=== PATIENT | male | born 1980 | race Caucasian/White ===

== ENCOUNTER → 2018-07-26 06:53 | Outpatient (CLI) | payer MEDICAID, SELFPAY ==
--- NOTE | 2018-07-26 06:58 | CT_ITS ---
STUDY: CT SOFT TISSUE NECK WITH CONTRAST REASON FOR EXAM: Male, 38 years old. Right neck mass 2 weeks. History of right bronchial mass removed 3 years ago. RADIATION DOSAGE (If Supplied By Facility): CTDIvol = ( 25.94 ) mGy, DLP = ( 712.53 ) mGycm TECHNIQUE: The patient was scanned in a multi-detector CT scanner. High resolution transaxial imaging was performed following intravenous administration of 75CC ml of Isovue 300 contrast material. Sagittal and coronal images were reconstructed. Individualized dose optimization techniques were used for this CT. COMPARISON: None. FINDINGS: There is a loculated cystic and solid mass posterior to the angle the mandible on the right. The mass measures up to 4.1 cm craniocaudal, 3.1 cm transverse, 3.7 cm anterior-posterior. Along its medial margin, the mass is bounded by the digastric muscle, jugular vein, internal and external carotid arteries. Lungs lateral superficial margin the mass is bounded by the sternocleidomastoid muscle and the base of the parotid gland. Mildly enlarged lymph nodes of the right jugulodigastric chain, several, the largest measuring approximately 13 x 9 mm. Nonenlarged lymph nodes are present adjacent to the normal submandibular gland. On the left, enlarged lymph node immediately posterior to the angle the mandible measures 2.2 x 1.4 cm. A few additional small lymph nodes are present in the left cervical chains. The left subendometrial gland is normal. Bilaterally, the parotid glands are normal. Parapharyngeal and retropharyngeal fat planes are preserved. Pharyngeal and laryngeal soft tissues normal. Normal thyroid. No supraclavicular mass or lymphadenopathy. Apical lungs clear with features of underlying centrilobular emphysema. Correlate smoking history. A few small lymph nodes are present in the mid to superior mediastinum, the largest in the prevascular chain measuring about 14 x 9.5 mm. Largest pretracheal measures approximately 12 x 9 mm, just above the ritesh. No adam mediastinal lymphadenopathy is visible. No acute osseous process. No significant cervical spondylosis. Paranasal sinuses, mastoid air cells within the field of view are clear. Middle ear cavities clear. CT/Soft Tissue Neck WITH Contrast IMPRESSION: Loculated cystic and solid mass of the right neck lying immediately posterior to the angle the mandible. 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 Centrally necrotic lymphadenopathy might present similarly. ENT consultation is recommended. Electronically Signed: Jorge Calix, at 10:50 EDT Tel , Service support ,
== END ==
PROVIDERS: Referring Provider Otolaryngology; Visit Provider Otolaryngology
DX: R22.1 Localized swelling, mass and lump, neck (principal)
CPT/HCPCS: 70491; Q9967

== ENCOUNTER → 2018-07-28 09:22 | Outpatient (CLI) | payer MEDICAID, SELFPAY ==
--- NOTE | 2018-07-28 | ASPOS_PTH ---
PATIENT: JOSEPHINE CRUZ LOC: [facility] U#:[id number] AGE/SX: 45/M ROOM: RE07/28/[address]: Dr. Easton Licea MD : 1980 BED: DIS: SPEC #: [id number] RECD: 07/28/18 12:59 STATUS: KYLEE NEREYDA #: [id number] SARAH: 07/28/18 00:[address]: Easton Licea DEPT: CYTOLOGY RECD BY: Mauri Bolton ENTERED: 07/28/18 13:00 SP TYPE: ASP HERE OTHR DR: No Primary Care Phys Tissues: Neck, NOS Procedures: Pap Stain (control) Special Stain Group II Surgery Specimen Level IV Diff Quik Stain (control) Cell Block Cytology Other Fine Needle Asp on Site HEADER OPERATION: Fine needle aspiration, right upper neck mass PRE-OP DIAGNOSIS: Right upper neck mass TISSUE SUBMITTED: Fine needle aspiration, right upper neck mass, smears and fluid for cytology DIAGNOSIS CYTOLOGY Fine needle aspiration, right upper neck mass (smears and cell block): Consistent with inflamed branchial cleft cyst. AM:an 07/29/18 COMMENT The specimen is evaluated at the time of FNA by Dr. Roberto. Immediate Evaluation = Consistent with benign cyst contents. Case has been reviewed in consultation with Dr. Boyce who concurs with the above diagnosis. IDC:SJ CYTOLOGY STUDY Slides are reviewed. CYTOLOGY GROSS Received is 0.5 ml of reddish fluid labeled with the patient's name, and designated right upper neck mass. Six imprints and four paps are made from the submitted fluid and the rest is added to CytoLyt for cell block preparation. Submitted for cytology study. / AM:an 07/28/18 TC:5 CPT: 67983, 67505, 92845, 04874
== END ==
PROVIDERS: Referring Provider Otolaryngology; Visit Provider Otolaryngology
DX: R22.1 Localized swelling, mass and lump, neck (principal)
CPT/HCPCS: 10021; 88161; 88305; 88313

== ENCOUNTER 2019-05-25 10:00 | Outpatient (RCR) | payer OTHER, MEDICAID, SELFPAY ==
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
== END 2019-05-25 19:00 | disposition home or self-care (01) ==
LOC: OT 10:00
PROVIDERS: Family Provider Family Medicine; PCP Family Medicine; Visit Provider Orthopaedic Surgery
DX: T79.A11D Traumatic compartment syndrome of right upper extremity, subsequent encounter (principal)
CPT/HCPCS: 97110; 97140; 97166; 97530

== ENCOUNTER 2024-12-02 01:42 | Emergency (ER) | payer MEDICAID, SELFPAY ==
[2024-12-02 01:43] VITALS: BP 156/103; PULSE 100; RESP 18; TEMP 35.5; O2SAT 97; BMI 33.0
--- NOTE | 2024-12-02 01:57 | ED.VIS.LOWEX ---
HPI History of Present Illness Chief Complaint: Lower Extremity Injury Narrative Narrative: 44-year-old male, homeless, presents with left foot pain that has had for about a month. He states that even today he has been walking on it a great deal. He took a Greyhound back from [place] and is trying to get to [place]. States he has been walking which causes the top of his left foot to hurt. Its to the point where he can barely even bend his great toe. He denies any fevers or chills, no shortness of breath, no chest pain, no nausea or vomiting. Pain is worse with weightbearing and walking, no recent trauma. No calf swelling. PFSH PFS Medical History Myocardial infarct Meningitis FH: cholecystectomy Compression fracture Allergy/AdvReac Type Severity Reaction Status Date / Time No Known Allergies Allergy Verified 12/02/24 01:46 Surgical History Stented coronary artery History of appendectomy History of tonsillectomy Social History Smoking Status: Current every day smoker tobacco type: cigarettes ROS ROS ED ROS Narrative Review of systems positive for left foot pain worse with walking and weightbearing. Pain when tries to move toes. No chest pain or shortness of breath. No other symptoms. EXAM Physical Exam Narrative Exam Narrative: Afebrile. Vital signs noted. Nontoxic-appearing. Cardiovascular examination regular rate and rhythm. Lungs are clear to auscultation bilaterally. Abdomen soft nontender. Inspection of the left foot does not show any erythema or cellulitis. He has a palpable dorsalis pedis pulse. No overt swelling, no obvious deformity. Good capillary refill of toes. Const Vital Signs: 12/02/24 01:43 Temperature 96 F L Temperature Source Axillary Pulse Rate 100 Respiratory Rate 18 Blood Pressure 156/103 H Blood Pressure Mean 120 Pulse Ox 97 Oxygen Delivery Method Room Air MDM MDM MDM Narrative Medical decision making narrative: Differential diagnosis includes overuse versus foot strain versus foot sprain versus tendinitis. I have low suspicion for fracture, however patient given Tylenol and given his 1 month of foot pain, x-rays were obtained of the left foot to look for foot fracture/stress fracture. On my independent interpretation of the left foot x-rays, there is no evidence of acute fracture. I reviewed the radiology report which confirms my independent interpretation. At this point in time I feel he can be discharged to follow-up with his primary care provider. I think he has more of an overuse syndrome/sprain/strain of his foot. He was placed in an Memo wrap and will continue [id number]-[id number] medications as needed as I do not feel he requires narcotic pain medication. Disposition is discharged in stable condition. History & Record Review Discussion w/independent historian: Patient Radiography Diagnostic Testing: Clinical Impression(s) from Imaging Studies Foot X-Ray 12/02/24 02:10 IMPRESSION: No acute osseous abnormality in the left foot. Reading Location: [facility] Discharge Plan Triage Chief Complaint: Lower Extremity Injury ED Provider: Isaak Sánchez Dx/Rx/DC Orders Clinical Impression: Left foot pain, Overuse syndrome of foot Instructions: Self-Care for Strains and Sprains, ED Pain, Acute, Uncertain Cause Primary Care Provider: Radha Rosado Referrals: Hardeep Schultz, [Non-Staff] - As soon as possible Print Language: Cape Verdean Disposition Disposition: Home, Self Care
[2024-12-02] MEDS: Acetaminophen 325 MG Tablet 650 MG PO (02:07)
--- NOTE | 2024-12-02 02:10 | RAD_ITS ---
PROCEDURE: FOOT MIN 3 VIEWS REASON FOR EXAM: Pain TECHNIQUE: 3 views of the left foot COMPARISON: None. FINDINGS: LEFT FOOT: No visible fracture. No suspicious bone lesion. Normal alignment. Soft tissues are unremarkable. RAD/Foot min 3 Views IMPRESSION: No acute osseous abnormality in the left foot. Reading Location: [facility]
== END 2024-12-02 02:50 | disposition home or self-care (01) ==
PROVIDERS: Emergency Provider Emergency Medicine; PCP Student in an Organized Health Care Education/Training Program; Visit Provider Emergency Medicine
DX: M79.672 Pain in left foot (principal); F17.210 Nicotine dependence, cigarettes, uncomplicated; Z59.00 Homelessness unspecified; Z95.5 Presence of coronary angioplasty implant and graft
CPT/HCPCS: 73630; 99282

== ENCOUNTER 2024-12-02 19:15 | Emergency (ER) | payer MEDICAID, SELFPAY ==
[2024-12-02 19:15] VITALS: BP 177/86; PULSE 101; RESP 14; TEMP 36.1; O2SAT 99; BMI 32.9
[2024-12-02 20:15] VITALS: BP 152/79; PULSE 97; RESP 17; O2SAT 97
[2024-12-02 20:27] LABS: Absolute Lymphocyte Count 2.04 X10^3/uL (0.83-4.51); Basophil# 0.05 X10^3/uL; Basophil% 0.4 % (0-1); Eosinophil# 0.04 X10^3/uL; Eosinophils% 0.3 % (0-5); Hematocrit 45.4 % (40-54); Hemoglobin 15.8 g/dL (13.0-16.5); Lymphocyte # 2.04 X10^3/ul (0.83-4.51); Lymphocyte % 15.8 % (19-41); Mean Corp Hgb Conc 34.8 g/dL (32-36); Mean Corpuscular Hgb 29.6 pg (27.0-32.0); Mean Corpuscular Volume 85.2 fL (80-94); Mean Platelet Vol. 10.4 fl (6.2-12.0); Monocyte# 0.75 X10^3/uL; Monocyte% 5.8 % (0-10); NRBC Flagged by Analyzer 0 % (0-5); Neutrophil # 9.96 X10^3/uL (2.7-7.7); Neutrophil % 77.4 % (47-70); Platelet Count 281 K/mm3 (150-450); RBC Distribution Width CV 13.1 % (11.6-14.6); RBC Distribution Width SD 40.3 fl (35.1-43.9); Red Blood Count 5.33 M/mm3 (4.6-6.2); White Blood Count 12.9 K/mm3 (4.4-11.0)
[2024-12-02 20:39] LABS: Anion Gap 9 (5-15); BUN 14 mg/dL (7-18); BUN/Creat Ratio 21.9 RATIO (10-20); Calcium,Total 9.7 mg/dL (8.5-10.1); Chloride 105 mmol/L (98-107); Creatinine, Serum 0.64 mg/dL (0.70-1.30); EST Glomerular Filtration Rate 143 mL/min (>60); Est Glom Filt Rate - Afr Amer 173 mL/min (>60); Estimated Creatinine Clearance 143.45 ml/min; Glucose 150 mg/dL (74-106); Potassium 3.5 mmol/L (3.5-5.1); Sodium Level 138 mmol/L (136-145)
[2024-12-02 20:42] LABS: Alcohol, Blood (Medical)-Serum < 3.0 mg/dL
[2024-12-02 20:52] LABS: Amphetamine Urine NEGATIVE (<1000 ng/mL); Barbiturate Urine VISTA NEGATIVE (< 200 ng/mL); Benzodiazepine Urine VISTA NEGATIVE (< 200 ng/mL); Cocaine Urine VISTA NEGATIVE (< 300 ng/mL); Ecstacy Urine VISTA NEGATIVE (< 500 ng/mL); Methadone Urine VISTA NEGATIVE (< 300 ng/mL); PCP Urine VISTA NEGATIVE (< 25 ng/mL); THC Urine VISTA NEGATIVE (< 50 ng/mL); Vista UDS pH Range 5
--- NOTE | 2024-12-02 20:59 | EX.ED.VIS.PS ---
HPI HPI - Psych History of Present Illness Chief Complaint: Suicidal Informant: patient Onset/Context/Timing Onset: Today Context: Gradual Onset Timing: Continuous Worsened by: Situational factors (Being homeless) and Alcohol intoxication Relieved by: Nothing Associated Symptoms Associated Symptoms - Psych: Positive for Depressed and Suicidal Thoughts; Negative for Confusion, Paranoia, Visual Hallucinations or Auditory Hallucinations Specific plan (suicidal thought): Jumping off of a bridge or jumping into traffic Narrative Narrative: Patient presents with depression and suicidal ideations that became worse today. Patient states they have gradually gotten worse. Patient states he has had thoughts of jumping off of a bridge. Patient states he has also had thoughts of jumping into traffic. Patient states it is worse due to the fact that he is homeless. Patient denies any visual or auditory hallucinations. Patient denies any paranoid ideations. Patient states nothing makes his symptoms any better. PFSH PFSH Medical History Myocardial infarct Meningitis FH: cholecystectomy Compression fracture Home Medications ?Medication ?Instructions ?Recorded ?Last Taken ?Type aripiprazole 5 mg tablet 5 mg PO QHS 12/02/24 Unknown History aspirin 81 mg tablet,delayed 81 mg PO DAILY 12/02/24 Unknown History release hydroxyzine pamoate 50 mg capsule 50 mg PO Q6H PRN anxiety 12/02/24 Unknown History lisinopril 10 mg tablet 10 mg PO DAILY 12/02/24 Unknown History metformin 750 mg tablet,extended 750 mg PO BID 12/02/24 Unknown History release 24 hr sertraline 100 mg tablet 100 mg PO DAILY 12/02/24 Unknown History sitagliptin phosphate 100 mg 100 mg PO DAILY 12/02/24 Unknown History tablet (Januvia) Allergy/AdvReac Type Severity Reaction Status Date / Time No Known Allergies Allergy Verified 12/02/24 01:46 Surgical History Stented coronary artery History of appendectomy History of tonsillectomy Social History Smoking Status: Current every day smoker tobacco type: cigarettes ROS ROS ED Constitutional Constitutional ED: Denies chills or fever(s) Eyes Eyes: Denies blurry vision or change in vision ENT ENT ED: Denies rhinorrhea or sore throat Cardiovascular Cardiovascular: Denies chest pain or palpitations Respiratory/Chest Respiratory/Chest: Denies cough or dyspnea Gastrointestinal Gastrointestinal: Denies nausea or vomiting Genitourinary Genitourinary ED: Denies dysuria or hematuria Musculoskeletal Musculoskeletal: Denies back pain or neck pain Integumentary Denies abscess or rash Neurologic Neurologic: Denies headache(s) or weakness Psychiatric Psychiatric: Reports depression, suicidal ideation and suicidal thoughts Allergic/Immunologic Allergic/Immunologic ED: Denies mouth swelling or urticaria EXAM Physical Exam Const Vital Signs: 12/02/24 19:15 12/02/24 20:15 Temperature 96.9 F L Temperature Source Temporal Pulse Rate 101 H 97 Respiratory Rate 14 17 Blood Pressure 177/86 H 152/79 H Blood Pressure Mean 116 103 Pulse Ox 99 97 Oxygen Delivery Method Room Air Positive well nourished and well developed General Appearance ED: well developed and NAD HEENT Reports moist mucous membranes normocephalic and atraumatic Neck supple and no JVD Resp normal respiratory effort and clear to auscultation bilaterally Cardio Rate: regular rate Rhythm: regular rhythm GI non-tender and non-distended Palpation: soft Neuro oriented x3, CN's II-XII intact bilaterally and no sensory deficits noted Sensorium / Orientation: alert Motor Exam: strength 5/5 throughout Psych cooperative Attitude: calm Activity / Motor Behavior: appropriate eye contact Speech: normal speech Mood & Affect: depressed and flat affect Thought Content: suicidality, No delusion(s) and No hallucination(s) Attention / Concentration: attention grossly intact MDM MDM MDM Narrative Medical decision making narrative: Medical screening labs will be obtained. CBC will be obtained to assess for leukocytosis and anemia. Basic metabolic profile will be obtained to assess for electrolyte abnormality and renal function. Serum alcohol level will be obtained to assess for alcohol intoxication. Urine drug screen will be obtained to assess for substance abuse. Lab Data Lab results narrative: CBC was reviewed. There is a slight leukocytosis of 12.9. The remainder is within normal limits. Basic metabolic profile was reviewed. Glucose was slightly elevated at 150. The remainder is within normal limits. Serum alcohol level was reviewed and was less than 3.0. Urine drug screen was reviewed and was negative. Labs: Laboratory Results - last 24 hr 12/02/24 19:40 WBC 12.9 H RBC 5.33 Hgb 15.8 Hct 45.4 MCV 85.2 MCH 29.6 MCHC 34.8 RDW Std Deviation 40.3 RDW Coeff of Pratima 13.1 Plt Count 281 MPV 10.4 Immature Gran % (Auto) 0.300 Neut % (Auto) 77.4 H Lymph % (Auto) 15.8 L [place] % (Auto) 5.8 Eos % (Auto) 0.3 Baso % (Auto) 0.4 Absolute Neuts (auto) 10.0 H Absolute Lymphs (auto) 2.04 Nucleated RBC % 0 Sodium 138 Potassium 3.5 Chloride 105 Carbon Dioxide 24.0 Anion Gap 9 BUN 14 Creatinine 0.64 L Estim Creat Clear Calc 143.45 Est GFR (MDRD) Af Amer 173 Est GFR (MDRD) Non-Af 143 BUN/Creatinine Ratio 21.9 H Glucose 150 H Calcium 9.7 Urine Opiates Screen NEGATIVE Urine Methadone Screen NEGATIVE Ur Barbiturates Screen NEGATIVE Ur Phencyclidine Scrn NEGATIVE Ur Amphetamines Screen NEGATIVE MDMA (Ecstasy) Screen NEGATIVE U Benzodiazepines Scrn NEGATIVE Urine Cocaine Screen NEGATIVE U Cannabinoids Screen NEGATIVE Ur Drug Screen Comment Ethyl Alcohol < 3.0 EKG Initial EKG: Attestation: I personally reviewed and interpreted this EKG as follows: Interpretation: Sinus Rhythm (81) and No Acute Injury Pattern Comments: EKG was obtained. On my independent interpretation, it showed a normal sinus rhythm with a rate of 81. RI interval, QRS interval, and QTc intervals were all normal. [place] was normal. There are no acute ST or T wave changes. Prior EKG tracings: not available for review Prior: No Prior Management Discussion w/another healthcare provider: building service worker/Case management and Behavioral health Treatment and Re-Evaluation Narrative: Suicide precautions were maintained. Patient was evaluated by professor of social work. She felt the patient would benefit from inpatient treatment. She will contact crisis to help arrange for placement. Care of the patient will be turned over the oncoming physician pending placement. Discharge Plan Triage Chief Complaint: Suicidal ED Provider: Ward Kincaid Dx/Rx/DC Orders Clinical Impression: Depression, Suicidal ideation Prescriptions: No Action aspirin 81 mg tablet,delayed release (DR/EC) 81 mg PO DAILY aripiprazole 5 mg tablet 5 mg PO QHS hydroxyzine pamoate 50 mg capsule 50 mg PO Q6H PRN (Reason: anxiety) Patient Comments: [NO ORIGINAL SIG] Januvia 100 mg tablet 100 mg PO DAILY sertraline 100 mg tablet 100 mg PO DAILY lisinopril 10 mg tablet 10 mg PO DAILY metformin 750 mg tablet extended release 24 hr 750 mg PO BID Primary Care Provider: Radha Rosado Referrals: Radha Rosado MD [Primary Care Provider] - Print Language: Khmer Disposition Disposition: Psychiatric Hospital or Unit
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
[2024-12-02] MEDS: ARIPiprazole 5 MG Tablet PO (22:14)
--- NOTE | 2024-12-02 22:27 | CM.ED ---
Social work Handoff to [facility] ([phone]) for placement; packet faxed over (f: ). Dr. Kincaid and nursing updated. Stefani Medrano, WATER SERVICE DISPATCHER, HOUSEKEEPING ATTENDANT
--- NOTE | 2024-12-02 23:35 | EKG12_ITS ---
Test Reason : [facility] Blood Pressure : */* mmHG Vent. Rate : 81 BPM Atrial Rate : 81 BPM P-R Int : 170 ms QRS Dur : 96 ms QT Int : 382 ms P-R-T Axes : 54 65 39 degrees QTcB Int : 443 ms Normal sinus rhythm Incomplete right bundle branch block Inferior infarct , age undetermined Abnormal ECG Confirmed by KEYONA MCGRATH, ESME ([id number]), deputy editor in chief PIERRE MILIAN ([id number]) on 12/05/2024 8:17:14 AM Referred By: Confirmed By: ESME RAND MD
[2024-12-03 04:21] VITALS: BP 142/74; PULSE 70; RESP 15; TEMP 36.6; O2SAT 99
[2024-12-03 05:14] VITALS: BP 125/85; RESP 18; O2SAT 97
[2024-12-03 06:46] LABS: Bedside Glucose 134 mg/dL (74-106)
== END 2024-12-03 07:41 ==
PROVIDERS: Emergency Provider Emergency Medicine; PCP Student in an Organized Health Care Education/Training Program; Visit Provider Emergency Medicine
DX: F32.A Depression, unspecified (principal); R45.851 Suicidal ideations; M79.672 Pain in left foot; F17.210 Nicotine dependence, cigarettes, uncomplicated; I25.2 Old myocardial infarction; Z95.5 Presence of coronary angioplasty implant and graft; Z59.00 Homelessness unspecified; Z79.899 Other long term (current) drug therapy; Z79.84 Long term (current) use of oral hypoglycemic drugs; Z79.82 Long term (current) use of aspirin
CPT/HCPCS: 36415; 73630; 80048; 80307; 82077; 82962; 85025; 93005; 99282; 99285